=== PATIENT | male | born 1990 | race African-American/Black ===

== ENCOUNTER 2017-04-17 14:31 | Emergency (ER) | payer MEDICAID ==
[~2017-04-17] VITALS: Ht 167.6 cm; Wt 104.0 kg
[2017-04-17] MEDS ORDERED: DIPHENHYDRAMINE HCL/ZINC ACET 28 GM CREAM TOP STA (16:07)
[2017-04-17] MEDS ORDERED: DIPHENHYDRAMINE 50MG CAPSULE PO ONE (16:15)
[2017-04-17 17:02] VITALS: BP 128/85
== END 2017-04-17 17:10 | disposition home or self-care (01) ==
LOC: ER 15:58
DX: L25.9 Unspecified contact dermatitis, unspecified cause (principal); F12.10 Cannabis abuse, uncomplicated; Z98.890 Other specified postprocedural states
CPT/HCPCS: 99283; Q0163

== ENCOUNTER 2017-04-25 17:21 | Emergency (ER) | payer SELFPAY ==
[~2017-04-25] VITALS: Ht 162.6 cm; Wt 116.0 kg
[2017-04-25] MEDS ORDERED: METHYLPREDNISOLONE SOD SUCC 125 MG/2 ML VIAL IM ONE (20:30)
[2017-04-25 21:30] VITALS: BP 114/68
== END 2017-04-25 21:30 | disposition home or self-care (01) ==
LOC: ER 17:21
DX: L29.9 Pruritus, unspecified (principal); R21 Rash and other nonspecific skin eruption; F12.10 Cannabis abuse, uncomplicated
CPT/HCPCS: 96372; 99283; J2930; Z7610